=== PATIENT | female | born 2005 | race Caucasian/White ===

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

== ENCOUNTER 2025-01-27 11:40 | Emergency (ER) | payer BC, SELFPAY ==
[2025-01-27 11:53] VITALS: BP 85/47; PULSE 120; RESP 17; TEMP 37.3; O2SAT 96; BMI 39.4
--- NOTE | 2025-01-27 12:01 | XR_ITS ---
WS: [id number] Portable AP upright chest, 01/27/2025 Clinical Data: Possible Sepsis Comparison: None. Findings: No nodules, masses or effusions are seen. The heart is normal. The pulmonary vascularity is not increased. No pneumonia or pneumothorax is seen. Monitor leads are on the chest wall. XR/XR chest 1V portable [id number] Impression: Negative chest.
--- NOTE | 2025-01-27 12:05 | CTR_ITS ---
PROCEDURE INFORMATION: Exam: CT Abdomen And Pelvis With Contrast Exam date and time: 01/27/2025 2:28 PM Age: 19 years old Clinical indication: Abdominal pain; Generalized; Additional info: Abd pain TECHNIQUE: Imaging protocol: Computed tomography of the abdomen and pelvis with contrast. Radiation optimization: All CT scans at this facility use at least one of these dose optimization techniques: automated exposure control; mA and/or kV adjustment per patient size (includes targeted exams where dose is matched to clinical indication); or iterative reconstruction. Contrast material: OMNI 350; Contrast volume: 100 ml; Contrast route: INTRAVENOUS (IV); COMPARISON: CR XR chest 1V portable [id number] 01/27/2025 12:44 PM RADIATION DOSE METRICS: Total DLP (mGy-cm): 1187.99 FINDINGS: Lungs: Bilateral dependent pulmonary atelectasis is demonstrated within the lungs. Liver: Liver appears heterogeneous. Possible hepatic parenchymal disease. Consider correlation with liver function tests. Gallbladder and biliary ducts: Unremarkable. No calcified stones. No ductal dilation. Pancreas: Unremarkable. Spleen: The spleen is enlarged. Spleen measurement: 16 cm greatest length. Adrenal glands: Normal. No mass. Kidneys and ureters: Unremarkable. No hydronephrosis or calculi. Stomach and bowel: Unremarkable. No obstruction, ileus or definite inflammation. Appendix: The visualized appendix appears unremarkable. Intraperitoneal space: No free air. No significant fluid collection. Vasculature: Calcifications in the pelvis, most compatible with phleboliths. Lymph nodes: No enlarged lymph nodes. Urinary bladder: Unremarkable as visualized. Reproductive: Unremarkable as visualized. Bones/joints: No acute bony abnormality. No significant degenerative changes. Soft tissues: Unremarkable. Other findings: This study is severely limited by patient's large body habitus. CT/CT abdomen pelvis w con* [id number] IMPRESSION: 1. Splenomegaly. 2. Nonspecific heterogeneous appearance of the liver. Consider correlation with liver function tests.
--- NOTE | 2025-01-27 12:08 | ED_ITS ---
HPI - Weakness 2 General: Chief complaint: Weakness Stated complaint: body ache, unable to eat, nausea Time Seen by Provider: 01/27/25 12:01 Source: patient Mode of arrival: ambulatory Limitations: no limitations History of Present Illness: 19-year-old female who states she has no t felt well over the last 5 to 6 days. States she been having bodyaches nausea has not been eating or drinking much. She states she has been having increased weakness low-grade fevers she states been having some lower abdominal pain denies any dysuria denies any vomiting or diarrhea patient was hypotensive in triage. Denies any worse improved factors Associated symptoms: Reports fever(s) and nausea; Denies chest pain, chills, headache(s) or vomiting Review of Systems 2 Const: Reports: fever(s), body aches and fatigue; Denies: chills or change in appetite ENMT: Denies: throat pain or dental pain Card: Denies: chest pain Resp: Denies: dyspnea GI: Reports: abdominal pain and nausea; Denies: vomiting or diarrhea Musc: Denies: neck pain or back pain Skin/Breast: Denies: rash Neuro: Denies: headache(s) PFSH ED 2 PFSH: Medical History Medication management Anxiety PTSD (post-traumatic stress disorder) ADHD Psychiatric care Musculoskeletal back pain Insomnia Seasonal allergies Surgical History No pertinent past surgical history Family History Grandmother Cancer adrenal and spread to kidney- had one kidney removed Diabetes maternal Stroke greatgrandmoter- Hyperlipidemia Thyroid disease hypo- grandmother Grandfather Dementia great grandfather Diabetes maternal Mother Forrester's palsy Other Asthma Denies family history of Bleeding disorder Social History Smoking and tobacco/nicotine status: never used tobacco/nicotine Second hand smoke exposure: No Alcohol intake: never Substance/Drug Use: never Adopted: No Current gender identity: Female Course 2 Vital Signs: Vital signs: Vital Signs Temperature 99.1 F 01/27/25 11:53 Pulse Rate 102 H 01/27/25 13:59 Respiratory Rate 16 01/27/25 13:59 Blood Pressure 113/64 01/27/25 13:59 Pulse Oximetry 94 01/27/25 13:59 Oxygen Delivery Me thod Room Air 01/27/25 11:53 MDM - Weakness Medical Decision Making Patient presents here with generalized weakness feels much improved after nausea medicines and fluids blood pressure and heart rates improved as well imaging blood work here is all normal she stable for discharge we will prescribe her Zofran for nausea she is to follow-up with PCP and return if worsening she understands agrees to plan. Medical Records I reviewed the patient's medical records. Lab Data I reviewed the patient's lab results. 01/27/25 12:15 01/27/25 12:15 Radiology Impressions Chest X-Ray 01/27/25 12:01 Impression: Negative chest. Abdomen/Pelvis CT 01/27/25 12:05 IMPRESSION: 1. Splenomegaly. 2. Nonspecific heterogeneous appearance of the liver. Consider correlation with liver function tests. Laboratory Results WBC 7.11 10^3/uL (4.5-13.0) 01/27/25 12:15 RBC 3.69 10^6/uL (3.85-5.65) L 01/27/25 12:15 Hgb 10.90 g/dL (12.4-14.8) L 01/27/25 12:15 Hct 33.3 % (36-47) L 01/27/25 12:15 MCV 90.2 fl (85-98) 01/27/25 12:15 MCH 29.5 pg (27-33) 01/27/25 12:15 MCHC 32.7 g/dL (30-55) 01/27/25 12:15 RDW 14.4 % (12.1-15.1) 01/27/25 12:15 Plt Count 182 10^3/cmm (157-399) 01/27/25 12:15 MPV 10.5 fL (7.4-10.4) H 01/27/25 12:15 Neut % (Auto) 39.7 % 01/27/25 12:15 Lymph % (Auto) 51.8 % 01/27/25 12:15 [place] % (Auto) 5.8 % 01/27/25 12:15 Eos % (Auto) 1.1 % 01/27/25 12:15 Baso % (Auto) 0.6 % 01/27/25 12:15 Neut # (Auto) 2.83 10^3/uL (1.8-8.0) 01/27/25 12:15 Lymph # (Auto) 3.7 10^3/uL (1.5-6.5) 01/27/25 12:15 [place] # (Auto) 0.4 10^3/uL (0.2-0.9) 01/27/25 12:15 Eos # (Auto) 0.1 10^3/uL (0.0-0.8) 01/27/25 12:15 Baso # (Auto) 0.0 10^3/uL (0.0-0.1) 01/27/25 12:15 Nucleated RBC % (auto) 0 % 01/27/25 12:15 Nucleated RBCs # 0.0 /100WBC 01/27/25 12:15 Sodium 137 mmol/L (136-145) 01/27/25 12:15 Potassium 3.3 mmol/L (3.5-5.1) L 01/27/25 12:15 Chloride 101 mmol/L (98-107) 01/27/25 12:15 Carbon Dioxide 23 mmol/L (22-29) 01/27/25 12:15 Anion Gap 16.3 (5-19) 01/27/25 12:15 BUN 6 mg/dL (6-20) 01/27/25 12:15 Creatinine 0.8 mg/dL (0.5-0.9) 01/27/25 12:15 GFR Calculation 92.4 mL/min (90-130) 01/27/25 12:15 Glucose 102 mg/dL (65-115) 01/27/25 12:15 POC Glucose 118 mg/dL (70-110) H 01/27/25 12:12 Calculated Osmolality 282 mOsm/kg (285-295) L 01/27/25 12:15 Lactic Acid 1.9 mmol/L (0.5-2.2) 01/27/25 12:15 Calcium 8.4 mg/dL (8.5-10.5) L 01/27/25 12:15 Magnesium 2.1 mg/dL (1.7-2.2) 01/27/25 12:15 Total Bilirubin 0.8 mg/dL (0.15-1.2) 01/27/25 12:15 AST 61 U/L (0-32) H 01/27/25 12:15 ALT 59 U/L (0-33) H 01/27/25 12:15 Alkaline Phosphatase 89 U/L (35-105) 01/27/25 12:15 Total Protein 7.1 g/dL (6.6-8.7) 01/27/25 12:15 Albumin 3.5 g/dL (3.5-5.2) 01/27/25 12:15 Globulin 3.6 g/dL (1.3-4.6) 01/27/25 12:15 Lipase 21 U/L (13-60) 01/27/25 12:15 HCG, Qual Negative (Negative) 01/27/25 13:31 Urine Color Dark yellow (Yellow) A 01/27/25 13:31 Urine Appearance Clear (CLEAR) 01/27/25 13:31 Urine pH 6.0 (5-7) 01/27/25 13:31 Ur Specific [place] 1.011 (1.005-1.030) 01/27/25 13:31 Urine Protein Negative (Negative) 01/27/25 13:31 Urine Glucose (UA) Negative (Normal) 01/27/25 13:31 Urine Ketones Negative (Negative) 01/27/25 13:31 Urine Blood Negative (Negative) 01/27/25 13:31 Urine Nitrate Negative (Negative) 01/27/25 13:31 Urine Bilirubin Negative (Negative) 01/27/25 13:31 Urine Urobilinogen 2.0 mg/dL (Negative) H 01/27/25 13:31 Ur Leukocyte Esterase Negative (Negative) 01/27/25 13:31 Urine RBC 0-2 /hpf (0-2) 01/27/25 13:31 Urine WBC 0-5 /hpf (0-5) 01/27/25 13:31 Ur Squamous Epith Cells 0-5 /hpf (0-5) 01/27/25 13:31 Amorphous Sediment Not Reportable 01/27/25 13:31 Urine Bacteria None seen /hpf (NONE) 01/27/25 13:31 Hyaline Casts 0.81 /lpf 01/27/25 13:31 Influenza A (PCR) Negative (Negative) 01/27/25 13:31 Influenza Type B (PCR) Negative (Negative) 01/27/25 13:31 RSV (PCR) Negative (Negative) 01/27/25 13:31 SARS-CoV-2 (PCR) Negative (Negative) 01/27/25 13:31 All radiology interpretation(s) finalized by discharge EKG Data EKG 1: I personally reviewed and interpreted this EKG as follows: EKG interpretation date: 01/27/25 EKG interpretation time: 12:27 Interpretation: sinus tach hr [address] elevation qrs 99 qtc 381 Discharge Plan Discharge Patient Disposition: Home Clinical Impression: General weakness, Nausea Condition: Stable Prescriptions: New ondansetron 4 mg tablet,disintegrating 4 mg PO Q6H PRN (Reason: nausea and vomiting) Qty: 14 0RF No Action albuterol sulfate [Ventolin HFA] 90 mcg/actuation HFA aerosol inhaler 2 puff inhalation Q6H PRN (Reason: shortness of breath or wheezing) Qty: 8.5 1RF Rx Instructions: use before exercise mirtazapine 15 mg tablet 15 mg PO .qhs Qty: 30 3RF ibuprofen 200 mg Tablet 400 mg PO Q6H PRN (Reason: Pain) norgestimate-ethinyl estradiol [Sprintec (28)] 0.25-35 mg-mcg tablet 1 tab PO QPM loratadine [Allergy Relief (loratadine)] 10 mg tablet 10 mg PO QPM PRN (Reason: allergy symptoms) escitalopram oxalate 20 mg tablet 20 mg PO QPM Discharge Orders: Discharge ED (Routine); Ordered 01/27/25 Ordered By: Ana Almonte Referrals: Janel Hodges MD [Primary Care Provider, Family Practice] - 4-7 days Discharge Diet: Advance as tolerated Discharge Activity: Resume usual activity Patient Instructions: Weakness (ED) Print Language: [place]se Coding Level of Care Code ED Special Delivery Mail Carrier for Chg Fwd Related Data Home Medications ?Medication ?Instructions ?Recorded ?Confirmed ibuprofen 200 mg tablet 400 mg PO Q6H PRN Pain 01/0501/27/25 escitalopram oxalate 20 mg tablet 20 mg PO QPM 5 01/27/25 loratadine 10 mg tablet (Allergy 10 mg PO QPM PRN darell rgy symptoms 01/27/25 01/27/25 Relief (loratadine)) norgestimate 0.25 mg-ethinyl 1 tab PO QPM 01/27/25 estradiol 0.035 mg tablet (Sprintec (28)) Previous Rx's ?Medication ?Instructions ?Recorded mirtazapine 15 mg tablet 15 mg PO .qhs #30 tabs 09/19 albuterol sulfate 90 mcg/actuation 2 puff inhalation Q 6H PRN 11/07/24 aerosol inhaler (Ventolin HFA) shortness of breath or wheezing #8.5 grams ondansetron 4 mg disintegrating 4 mg PO Q6H PRN nausea and 01/27/25 tablet vomiting #14 tabs Allergies Allergy/AdvReac Type Severity Reaction Status Date / Time No Known Allergies Allergy Verified 11/07/24 13:17
[2025-01-27 12:16] LABS: Glucose Point of Care 118 mg/dL (70-110)
--- NOTE | 2025-01-27 12:27 | ECG_ITS ---
[facility]: 2025-[facility]27 Pat Name: Jhoana Burr Department: Room: Gender: Female Certified Legal Investigator: : 2005 Requested By: Ana Almonte Order Number: [id number] Deborah MD: KAROL ALY Measurements Intervals [place] Rate: 105 P: 30 KS: 156 QRS: 30 QRSD: 99 T: 23 QT: 320 QTc: 424 Interpretive Statements SINUS TACHYCARDIA ABNORMAL RHYTHM ECG No previous ECG available for comparison Electronically Signed On 02-01-2025 22:59:25 CDT by KAROL ALY [email or web address]
[2025-01-27 12:29] VITALS: BP 123/78; PULSE 107; RESP 11; O2SAT 94
[2025-01-27 12:29] LABS: Basophils % 0.6 %; Eosinophils # 0.1 10^3/uL (0.0-0.8); Eosinophils % 1.1 %; Hematocrit 33.3 % (36-47); Lymphocytes # 3.7 10^3/uL (1.5-6.5); Lymphocytes % 51.8 %; Mean Corpuscular HGB Conc 32.7 g/dL (30-55); Mean Corpuscular Hemoglobin 29.5 pg (27-33); Mean Corpuscular Volume 90.2 fl (85-98); Mean Platelet Volume 10.5 fL (7.4-10.4); Monocytes # 0.4 10^3/uL (0.2-0.9); Monocytes % 5.8 %; Neutrophils # 2.83 10^3/uL (1.8-8.0); Neutrophils % 39.7 %; Nucleated Red Blood Cells % 0 %; Platelet Count 182 10^3/cmm (157-399); Red Blood Count 3.69 10^6/uL (3.85-5.65); Red Cell Distribution Width 14.4 % (12.1-15.1); White Blood Count 7.11 10^3/uL (4.5-13.0)
[2025-01-27 12:45] LABS: Alanine Aminotransferase 59 U/L (0-33); Albumin Level 3.5 g/dL (3.5-5.2); Alkaline Phosphatase 89 U/L (35-105); Anion Gap 16.3 (5-19); Aspartate Amino Transferase 61 U/L (0-32); Blood Urea Nitrogen 6 mg/dL (6-20); Calcium 8.4 mg/dL (8.5-10.5); Carbon Dioxide 23 mmol/L (22-29); Chloride 101 mmol/L (98-107); Creatinine Clr Calc Pharmacy 133.1165; Globulin 3.6 g/dL (1.3-4.6); Glomerular Filtration Rate 92.4 mL/min (90-130); Glucose 102 mg/dL (65-115); Lipase 21 U/L (13-60); Magnesium 2.1 mg/dL (1.7-2.2); Osmolality Calculated 282 mOsm/kg (285-295); Potassium 3.3 mmol/L (3.5-5.1); Sodium 137 mmol/L (136-145); Total Bilirubin 0.8 mg/dL (0.15-1.2); Total Protein 7.1 g/dL (6.6-8.7)
[2025-01-27 12:46] LABS: Lactic Sepsis W/Reflex 1.9 mmol/L (0.5-2.2)
[2025-01-27 12:59] VITALS: BP 136/74; PULSE 101; RESP 20; O2SAT 96
[2025-01-27] MEDS: acetaminophen 325 mg Tablet 650 MG PO (13:05)
[2025-01-27 13:29] VITALS: BP 107/66; PULSE 104; RESP 14; O2SAT 95
[2025-01-27 13:48] LABS: Bilirubin Urine Negative (Negative); Blood Urine Negative (Negative); Glucose Urine UA Negative (Normal); HCG Qualitative Urine. Negative (Negative); Ketones Urine Negative (Negative); Leukocyte Esterase Urine Negative (Negative); Nitrate Urine Negative (Negative); Protein Urine Negative (Negative); Specific Gravity, Urine 1.011 (1.005-1.030); Urine Appearance Clear (CLEAR); Urine Color Dark Yellow (Yellow)
[2025-01-27 13:54] LABS: Add Urine Microscopic? YES; Bacteria Urine None Seen /hpf; Hyaline Casts Urine 0.81 /lpf; RBC Urine 0-2 /hpf (0-2); Squamous Epithelial Cell Urine 0-5 /hpf (0-5); WBC Urine 0-5 /hpf (0-5)
[2025-01-27 13:59] VITALS: BP 113/64; PULSE 102; RESP 16; O2SAT 94
[2025-01-27 14:24] LABS: Influenza A NEGATIVE (Negative); Influenza B NEGATIVE (Negative); Respiratory Syncytial Virus Ce NEGATIVE (Negative); SARS-CoV-2 PCR NEGATIVE (Negative)
[2025-01-27] MEDS: iohexol 350 mg/mL 500 mL Btl (per mL) IV (14:30)
[2025-01-27 15:10] VITALS: BP 122/74; PULSE 112; O2SAT 94
== END 2025-01-27 15:10 | disposition home or self-care (01) ==
PROVIDERS: Emergency Provider Emergency Medicine; PCP Family Medicine
DX: R53.1 Weakness (principal); R11.0 Nausea; Z11.52 Encounter for screening for COVID-19
CPT/HCPCS: 36415; 36416; 71045; 74177; 80053; 81001; 81025; 82962; 83605; 83690; 83735; 85025; 87040; 87637; 93005; 99285; J7030; J9999

== ENCOUNTER → 2025-03-01 14:03 | Outpatient (BNVA) | payer BC, SELFPAY | PROVIDERS: PCP Family Medicine; Visit Provider Nurse Practitioner | DX: J02.9 Acute pharyngitis, unspecified (principal) | CPT/HCPCS: 87880 ==